=== PATIENT | female | born 1950 | race Caucasian/White ===

== ENCOUNTER 2017-12-17 15:41 | Emergency (ER) | payer OTHER ==
[2017-12-17 15:44] VITALS: BP 136/63; PULSE 62; RESP 20; TEMP 97.4; O2SAT 100
[2017-12-17] MEDS ORDERED: MONT10TA2 PO (15:59)
[2017-12-17] MEDS ORDERED: PANT40TA3 PO (15:59)
[2017-12-17] MEDS ORDERED: LOSA50TA PO (15:59)
[2017-12-17] MEDS ORDERED: ESCI20TA PO (15:59)
[2017-12-17] MEDS ORDERED: GUAI1TAB18 (15:59)
[2017-12-17] MEDS ORDERED: FIBE625T PO (15:59)
[2017-12-17] MEDS ORDERED: SIMV40TA PO (15:59)
[2017-12-17] MEDS ORDERED: FOSA70TA PO (15:59)
[2017-12-17] MEDS ORDERED: CRANCAP2 PO (15:59)
[2017-12-17 16:21] VITALS: O2SAT 96
--- NOTE | 2017-12-17 16:25 | PD ---
HPI Chief Complaint: GI Complaint Time Seen by Provider: 16:11 Travel History International Travel<30 days: No Contact w/Intl Traveler<30days: No Traveled to known affect area: No History of Present Illness HPI patient states that she had uri type sx back in october when she was seen by her pulm dr cárdenas who dx her with bronchitis and fine tune her copd medications without any antibiotics...patient then presented to ER where she was admitted and ruled out for OK, according to her she still had diarrhea. now presents stating that now nearly a month after she still has the diarrhea. per patient no antibiotics used in the entire month that she expressed h/o persistent diarrhea. denies alleviating/aggravating factors denies fever/cp/bergeron/backpain/n/v/ PFSH Social History Tobacco Use: No Allergies-Medications (Allergen,Severity, Reaction): Coded Allergies: No Known Allergies (Unverified , 12/17/17) Reported Meds & Prescriptions Reported Meds & Active Scripts Active Reported Singulair (Montelukast Sodium) 10 Mg Tab 10 Mg PO HS Fosamax (Alendronate Sodium) 70 Mg Tab 70 Mg PO Q7D Cranberry Urinary Comfort (Vitamins C & E) 1 Cap 1 Cap PO DAILY Fibercon (Calcium Polycarbophil) 625 Mg Tab 1,250 Mg PO PRN Mucinex (Guaifenesin) 1,200 Mg Tab.er.12h Simvastatin 40 Mg Tab 40 Mg PO HS Escitalopram (Escitalopram Oxalate) 20 Mg Tab 20 Mg PO DAILY Losartan (Losartan Potassium) 50 Mg Tab 50 Mg PO DAILY Pantoprazole (Pantoprazole Sodium) 40 Mg Tab 40 Mg PO DAILY Review of Systems Except as stated in HPI: all other systems reviewed are Neg General / Constitutional: No: Fever Eyes: No: Visual changes HENT: No: Headaches Cardiovascular: No: Chest Pain or Discomfort Respiratory: No: Shortness of Breath Gastrointestinal: Positive: Diarrhea, Abdominal Pain Genitourinary: No: Dysuria Musculoskeletal: No: Pain Skin: No Rash Neurologic: No: Weakness Psychiatric: No: Depression Endocrine: No: Polydipsia Hematologic/Lymphatic: No: Easy Bruising Physical Exam Narrative GENERAL: SKIN: Warm and dry. HEAD: Atraumatic. Normocephalic. EYES: Pupils equal and round. No scleral icterus. No injection or drainage. ENT: No nasal bleeding or discharge. Mucous membranes pink and moist. NECK: Trachea midline. No JVD. CARDIOVASCULAR: Regular rate and rhythm. RESPIRATORY: No accessory muscle use. Clear to auscultation. Breath sounds equal bilaterally. GASTROINTESTINAL: Abdomen soft, non-tender, nondistended. MUSCULOSKELETAL: Extremities without clubbing, cyanosis, or edema. No obvious deformities. NEUROLOGICAL: Awake and alert. No obvious cranial nerve deficits. Motor grossly within normal limits. Five out of 5 muscle strength in the arms and legs. Normal speech. PSYCHIATRIC: Appropriate mood and affect; insight and judgment normal. Data Data Last Documented VS Vital Signs Date Time Temp Pulse Resp B/P (MAP) Pulse Ox O2 Delivery O2 Flow Rate FiO2 12/17/17 16:29 59 20 99 12/17/17 15:44 97.4 136/63 (87) Orders Orders Complete Blood Count With Diff (12/17/17 16:18) Comprehensive Metabolic Panel (12/17/17 16:18) Lipase (12/17/17 16:18) Enteric Path (Stool) (12/17/17 16:18) C Diff Toxin Pcr (12/17/17 16:18) Ct Abd/Pel W/O Iv Contrast (12/17/17 16:18) Iv Access Insert/Monitor (12/17/17 16:18) Ecg Monitoring (12/17/17 16:18) Oximetry (12/17/17 16:18) Giardia Antigen (Stool) (12/17/17 16:18) Stool Ova And Parasite Screen (12/17/17 16:18) Stool Wbc (Leukocytes) (12/17/17 16:18) Sodium Chlor 0.9% 1000 Ml Inj (Ns 1000 M (12/17/17 16:30) Labs Laboratory Tests Test 12/17/17 16:25 White Blood Count 5.5 TH/MM3 Red Blood Count 4.43 MIL/MM3 Hemoglobin 12.7 GM/DL Hematocrit 39.3 % Mean Corpuscular Volume 88.8 FL Mean Corpuscular Hemoglobin 28.7 PG Mean Corpuscular Hemoglobin Concent 32.3 % Red Cell Distribution Width 13.4 % Platelet Count 240 TH/MM3 Mean Platelet Volume 7.9 FL Neutrophils (%) (Auto) 60.2 % Lymphocytes (%) (Auto) 31.2 % Monocytes (%) (Auto) 7.6 % Eosinophils (%) (Auto) 0.6 % Basophils (%) (Auto) 0.4 % Neutrophils # (Auto) 3.4 TH/MM3 Lymphocytes # (Auto) 1.7 TH/MM3 Monocytes # (Auto) 0.4 TH/MM3 Eosinophils # (Auto) 0.0 TH/MM3 Basophils # (Auto) 0.0 TH/MM3 CBC Comment DIFF FINAL Differential Comment Blood Urea Nitrogen 10 MG/DL Creatinine 0.88 MG/DL Random Glucose 105 MG/DL Total Protein 7.6 GM/DL Albumin 3.6 GM/DL Calcium Level 9.0 MG/DL Alkaline Phosphatase 96 U/L Aspartate Amino Transf (AST/SGOT) 22 U/L Alanine Aminotransferase (ALT/SGPT) 25 U/L Total Bilirubin 0.4 MG/DL Sodium Level 138 MEQ/L Potassium Level 4.3 MEQ/L Chloride Level 105 MEQ/L Carbon Dioxide Level 26.7 MEQ/L Anion Gap 6 MEQ/L Estimat Glomerular Filtration Rate 64 ML/MIN Lipase 186 U/L MDM Medical Decision Making Medical Screen Exam Complete: Yes Emergency Medical Condition: Yes Medical Record Reviewed: Yes Differential Diagnosis viral v bacterial enteritis v colitis v divertic v malabsorptive syndrome v loose stools due to lack of gallbladder Narrative Course on review cbc did not show any evidence of leukocytosis, nor neutrophilia/ lymphocytosis either. all electrolytes are wnl, liver/kidney/pancreas functions are wnl as well. making malabsorptive syndrome more likely. currently awaiting ct results at 1700...at [address]22 ct read by radiologist as negative for colitis/divertic/abscess/or enlarged lymph nodes. During ER stay patient was able to provide stool sample for cultures and none of the examination/results will be available today so patient will be d/c home pending results. Diagnosis Primary Impression: Diarrhea, unspecified Qualified Codes: R19.7 - Diarrhea, unspecified Referrals: Tanvi Suazo MD for further evaluation of your ongoing diarrhea Patient Instructions: Chronic Diarrhea (ED), General Instructions Additional Instructions: currently, continue staying hydrated, avoid high sugar drinks and also dairy products for now...results can be followed up by your primary doctor or by your [facility]. We will call you if they return positive for c diff/crypto/ giadia/parasites or if culture returns positive as well. Disposition: 01 DISCHARGE HOME Condition: Stable Catracho Muñiz MD Dec 17, 2017 16:25
[2017-12-17 16:28] LABS: AUTOMATED NEUTROPHIL # 3.4 TH/MM3 (1.8-7.7); BASOPHIL % 0.4 % (0.0-2.0); EOSINOPHIL % 0.6 % (0.0-4.0); HEMATOCRIT 39.3 % (35.0-46.0); HEMOGLOBIN 12.7 GM/DL (11.6-15.3); LYMPH % 31.2 % (9.0-44.0); LYMPHOCYTE # 1.7 TH/MM3 (1.0-4.8); MEAN CELL VOLUME 88.8 FL (80.0-100.0); MEAN CORPUSCULAR HEMOGLOBIN 28.7 PG (27.0-34.0); MEAN CORPUSCULAR HGB CONC 32.3 % (32.0-36.0); MEAN PLATELET VOLUME 7.9 FL (7.0-11.0); MONO % 7.6 % (0.0-8.0); MONOCYTE # 0.4 TH/MM3 (0-0.9); NEUT % 60.2 % (16.0-70.0); PLATELET COUNT 240 TH/MM3 (150-450); RED BLOOD COUNT 4.43 MIL/MM3 (4.00-5.30); RED CELL DISTRIBUTION WIDTH 13.4 % (11.6-17.2); WHITE BLOOD COUNT 5.5 TH/MM3 (4.0-11.0)
[2017-12-17 16:29] VITALS: PULSE 59; RESP 20; O2SAT 99
[2017-12-17] MEDS ORDERED: SODIUM CHLOR 0.9% 1000 ML INJ 1,000 ML IV ONE (16:30)
[2017-12-17 16:41] LABS: CHLORIDE 105 MEQ/L (98-107); SODIUM (NA) 138 MEQ/L (136-145)
[2017-12-17 16:45] LABS: ALBUMIN 3.6 GM/DL (3.4-5.0); BICARBONATE 26.7 MEQ/L (21.0-32.0); BLOOD UREA NITROGEN 10 MG/DL (7-18); GLUCOSE,RANDOM 105 MG/DL (74-106); LIPASE 186 U/L (73-393)
[2017-12-17 16:48] LABS: ALT (GPT) 25 U/L (10-53); AST (GOT) 22 U/L (15-37); CREATININE 0.88 MG/DL (0.50-1.00); GLOMERULAR FILTRATION RATE 64 ML/MIN (>89)
[2017-12-17 16:50] LABS: TOTAL BILIRUBIN ADULT 0.4 MG/DL (0.2-1.0); TOTAL PROTEIN 7.6 GM/DL (6.4-8.2)
[2017-12-17 16:51] LABS: ALKALINE PHOSPHATASE 96 U/L (45-117)
--- NOTE | 2017-12-17 17:19 | RADRPT ---
EXAM DATE/TIME: 12/17/2017 16:59 [facility] COMPARISON: No previous studies available for comparison. INDICATIONS : Abdominal pain. Diarrhea x 1 month. ORAL CONTRAST: No oral contrast ingested. RADIATION DOSE: 15.69 CTDIvol (mGy) MEDICAL HISTORY : Chronic obstructive pulmonary disease. SURGICAL HISTORY : None. ENCOUNTER: Initial ACUITY: 1 month PAIN SCALE: 4/10 LOCATION: Abdomen. TECHNIQUE: Volumetric scanning of the abdomen and pelvis was performed. Using automated exposure control and ad justment of the mA and/or kV according to patient size, radiation dose was kept as low as reasonably achievable to obtain optimal diagnostic quality images. DICOM format image data is available electro nically for review and comparison. FINDINGS: LOWER LUNGS: The visualized lower lungs are clear. LIVER: Homogeneous density without lesion. There is no dilation of the biliary tree. Gallbladder surgically absent.. SPLEEN: Several tiny low densities in the spleen, potentially cysts or hemangiomata. PANCREAS: Within normal limits. KIDNEYS: Small medial right kidney upper pole cortical cyst. No evidence of stone or hydronephrosis.. ADRENAL GLANDS: Within normal limits. VASCULAR: There is no aortic aneurysm. BOWEL/MESENTERY: The stomach, small bowel, and colon demonstrate no acute abnormality. There is no free intraperitone al air or fluid. ABDOMINAL WALL: Within normal limits. RETROPERITONEUM: There is no lymphadenopathy. BLADDER: No wall thickening or mass. REPRODUCTIVE: Within normal limits. INGUINAL: There is no lymphadenopathy or hernia. MUSCULOSKELETAL: Within normal limits for patient age. CONCLUSION: No acute CT findings in the abdomen or pelvis. Lazaro Palmer MD on December 17, 2017 at 17:07 Board Certified Radiologist. This report was verified electronically.
== END 2017-12-17 17:51 | disposition home or self-care (01) ==
LOC: PHED 15:41
DX: R19.7 Diarrhea, unspecified (principal); J44.9 Chronic obstructive pulmonary disease, unspecified
CPT/HCPCS: 74176; 80053; 83690; 85025; 87205; 87328; 87329; 87493; 87506; 96360; 99284; J7030